=== PATIENT | male | born 1975 | race Caucasian/White ===

== ENCOUNTER → 2017-09-04 09:16 | Outpatient (CLI) | payer OTHER ==
--- NOTE | ~2017-09-04 | EC ---
PATIENT:GHASSAN AVINA 3RD DATE OF SERVICE: 09/04/17 SEX: M MEDICAL RECORD: [id number] DATE OF : 73 LOCATION:D.[facility] AGE OF PATIENT: 42 ADMISSION DATE: 09/04/17 REFERRING PHYSICIAN: INTERPRETING PHYSICIAN: DENNIS ESTRADA MD ECHOCARDIOGRAM REPORT ECHO CHARGES 4 ECHO COMPLETE Date: 09/04 CLINICAL DIAGNOSIS: HTN,ANGINA ECHOCARDIOGRAPHIC MEASUREMENTS (adult normal given) AC root (d.<3.7cm) 3.3 cm LV Septum d (<1.2 cm> 1.54 cm Valve Excursion 1.6 cm LV Septum (systole) 1.8 cm Left Atria (s.<4.0cm> 4.1 cm LVPW d(<1.2cm) 1.4 cm RV (d.<2.3cm) 4.6 cm LVPW (sytole) 1.8 cm LV diastole(<5.6CM) 4.9 cm MV E-F(>70mm/sec) cm LV systole 2.9 cm LVOT Diameter 1.9 cm MV exc.(>10mm) 1.6 cm Est.ejection fraction (50-75%) % DOPPLER: LVIT cm/sec A 61.0 cm/sec E 89.0 cm/sec LA cm/sec RVSP 39 mmHg LVOT 98 cm/sec AOP1/2T m/s Asc. Ao 127 cm/sec RVOT 101 cm/sec RA cm/sec PA 116 cm/sec AV Gradient Peak 6.42 mmHg AV Mean 3.39 mmHg AV Area 2.3 cm MV Gradient Peak 4.82 mmHg MV Mean 1.25 mmHg MV Area cm COMMENTS: Event Services Manager: 2 FRANCISCO JAVIER CHEEMA Wind Tunnel Technician: 4 Dr. Estrada TAPE# PACS Pericardial Effusion N DATE OF SERVICE: PROCEDURE: Transthoracic echocardiogram. FINDINGS: 1. Left ventricle has jefz-nh-tajnkevl left ventricular hypertrophy. Inflow characteristics; however, preserved and normal, the ejection fraction 65%. 2. The left atrium is mildly dilated. 3. The aortic valve is normal. 4. The mitral valve is normal. ECHOCARDIOGRAM REPORT [id number] GHASSAN AVINA 3RD 5. The tricuspid valve has mild tricuspid regurgitation. RVSP is mildly increased at 35-40 mmHg. 6. The pericardium is normal. 7. The right ventricle is moderately dilated. 8. The right atrium is mildly dilated. 9. The pulmonic valve is normal. 10. The interatrial septum is not well visualized. 11. The IVC is shown to be normal size and collapses with inspiration. CONCLUSIONS: The patient has evidence of mild left ventricular hypertrophy, otherwise normal echocardiogram. TRANSINT:[id number] Voice Confirmation ID: [id number] DOCUMENT ID: [id number] DENNIS ESTRADA MD at 1342 CC: [id number] DICTATION DATE: 09/04/17 1122 KNOT TYING OPERATOR: 09/04/17 1229 DEP CLI 09/04/17 [facility] [address] [place] [address]
== END | disposition home or self-care (01) ==
LOC: D.ECHO 09:16
DX: I20.9 Angina pectoris, unspecified (principal); I70.213 Atherosclerosis of native arteries of extremities with intermittent claudication, bilateral legs

== ENCOUNTER → 2017-10-09 17:03 | Outpatient (CLI) | payer OTHER ==
[~2017-10-09 17:03] MED LIST: BAYER CHEWABLE81 MG PO; GLUCOPHAGE1000 MG PO; LISINOPRIL10 MG PO; PLAVIX75 MG PO
[2017-10-09 17:35] LABS: ALBUMIN 3.8 g/dL (3.4-5.0); BILIRUBIN - DIRECT 0.06 mg/dL (0.00-0.30); BILIRUBIN - INDIRECT 0.14 mg/dL (0.00-1.00); BILIRUBIN - TOTAL 0.2 mg/dL (0.2-1.3); CHOL - HDL RATIO 6.5 ratio (2.3-4.9); LDL-HDL RATIO 3.2 ratio (1.5-3.5); PROTEIN - SERUM 7.9 g/dL (6.4-8.2)
[2017-11-13 07:24] VITALS: BMI 34.0
== END | disposition home or self-care (01) ==
LOC: D.LABREF 17:03
PROVIDERS: Internal Medicine Cardiovascular Disease
DX: E78.5 Hyperlipidemia, unspecified (principal); I10 Essential (primary) hypertension

== ENCOUNTER 2017-11-13 06:53 | Outpatient (CLI) | payer OTHER ==
[~2017-11-13] VITALS: Ht 175.3 cm; Wt 104.5 kg
--- NOTE | ~2017-11-13 | HEMODYNAMI ---
PATIENT:GHASSAN AVINA 3RD MEDICAL RECORD: [id number] : 73 LOCATION:[facility] ADMISSION DATE: 11/13/17 Generatedon:11/13/201710:27 Patient name: GHASSAN AVINA Patient #: [id number] SSN: : Date of study: 11/13/2017 Page: Of Hemodynamic Procedure Report Patient Data Patient Demographics Procedure consent was obtained First Name: GHASSAN Gender: Male Last Name: FABRICE : 1975 Middle Initial: 3RD Age: 42 year(s) Patient #: [id number] Race: Unknown Additional ID: [id number] Contact details Address: [address] [place] [address] cutoff State: [place] City: [facility] Zip code: [address] Past Medical History Allergies: No known allergies Admission Admission Data Admission Date: 11/13/2017 Admission Time: 6:53 Lab Results Lab Result Date: 11/13/2017 Lab Result Time: 0:00 Biochemistry Name Units Result Min Max BUN mg/dl 25 --(----)-* 7 18 Creatinine mg/dl 0.9 --(-*--)-- 0.6 1.3 CBC Name Units Result Min Max Hemoglobin g/dl 15.8 --(--*-)-- 13.5 17.5 Procedure Procedure Types Cath Procedure Diagnostic Procedure [facility] w/Coronaries Sedation Charges Moderate Sedation up to 15 minutes PCI Procedure Coronary Stent Coronary Stent Initial Procedure Description Procedure Date Procedure Date: 11/13/2017 Procedure Start Time: 9:57 Procedure End Time: 10:23 Procedure Staff Name Function Kunal Medel MD Performing Physician Orestes Brown RT Monitor La Winter RT Scrub Ruddy Rodarte RN Nurse Procedure Data Cath Procedure Fluoroscopy Diagnostic fluoroscopy Total fluoroscopy Time: 8.9 time: 8.9 min min Diagnostic fluoroscopy Total fluoroscopy dose: dose: 1615 mGy 1615 mGy Contrast Material Contrast Material Type Amount (ml) Isovue 300 90 Entry Location Entry Primary Successful Side Size Upsize Upsize Entry Closure Alva ccessful Closure Location (Fr) 1 (Fr) 2 (Fr) Remarks Device Remarks Radial Right 6 Fr Mechanical artery Short Compression Estimated blood loss: 10 ml Diagnostic catheters Device Type Used For End Catheter Placement DIAGNOSTIC Mansoor 110cm Procedure 5Fr catheter ([id number]) Procedure Complications No complications Procedure Medications Medication Administration Route Dosage 0.9% NaCl I.V. 100 ml/hr Oxygen etCO2 Nasal cannula 2 l/min Heparin Flush Bag added to field 2 bags (1000units/500ml NS) Lidocaine 2% added to field 20 Radial Cocktail added to field 1 syringe (Verapomil 2mg/Nitro 400mcg/Heparin 1500units) Versed I.V. 2 mg Fentanyl I.V. 50 mcg Radial Cocktail I.A. 1 syringe (Verapomil 2mg/Nitro 400mcg/Heparin 1500units) Angiomax (bolus) I.V. 16 ml Angiomax Drip I.V. drip 37 ml/hr (250mg/50ml NS) (Standard) Angiomax Drip wasted 37 ml/hr (250mg/50ml NS) (Standard) Plavix P.O. 300 mg Hemodynamics Rest HGB: 15.8 (g/dl) Heart Rate: 51 (bpm) Pressure Samples Time Site Value (mmHg) Purpose Heart Use Rate(bpm) 10:01 LV 108/-1,15 EDP 53 Gradients Valve Time Site Site Mean SEP/DFP Peak To Heart Use 1 2 (mmHg) (sec/min) Peak Rate (mmHg) (bpm) Aortic 10:02 LV AO 61 Snapshots Pre Cath Intra NCS Post Cath Vital Signs Time Heart Resp SPO2 etCO2 NIBP Rhythm Pain Sedation Rate (ipm) (%) (mmHg) (mmHg) Status Level (bpm) 9:39:46 46 20 94 0 120/59(87) NSR 0 (11) 10(A) , No pain 9:44:26 48 18 95 30.1 115/58(91) NSR 0 (11) 10(A) , No pain 9:49:09 53 16 97 36.1 108/58(76) NSR 0 (11) 10(A) , No pain 9:53:56 51 15 97 36.8 101/53(79) NSR 0 (11) 10(A) , No pain 9:58:39 50 18 97 29.3 99/52(77) NSR 0 (11) 10(A) , No pain 10:03:21 54 16 94 33.1 100/43(82) NSR 0 (11) 10(A) , No pain 10:08:08 59 15 96 36.1 104/39(70) NSR 0 (11) 10(A) , No pain 10:12:49 55 15 95 35.3 99/52(78) NSR 0 (11) 10(A) , No pain 10:17:25 54 17 97 34.6 110/57(80) NSR 0 (11) 10(A) , No pain 10:22:08 58 17 98 34.6 104/56(72) NSR 0 (11) 10(A) , No pain Medications Time Medication Route Dose Verified Delivered Reason Not es Effectiveness by by 9:43:45 0.9% NaCl I.V. 100 Ruddy Ruddy Per physician ml/hr Cayden Rodarte RN RN 9:43:53 Oxygen etCO2 2 l/min Ruddy Ruddy Per physician Nasal Cayden Rodarte cannula RN RN 9:44:04 Heparin Flush added 2 bags Ruddy Ruddy used for Bag to Lorigan Lorigan procedure (1000units/500ml field RN RN NS) 9:44:15 Lidocaine 2% added 20ml Ruddy Ruddy for local to vial Lorigan Lorigan anesthetic [facility] RN RN 9:44:27 Radial Cocktail added 1 Ruddy Ruddy used for (Verapomil to syringe Lorigan Lorigan procedure 2mg/Nitro field RN RN 400mcg/Heparin 1500units) 9:52:01 Versed I.V. 2 mg Ruddy Ruddy for sedation Cayden Rodarte RN RN 9:52:14 Fentanyl I.V. 50 mcg Ruddy Ruddy for sedation Cayden Rodarte RN RN 10:00:05 Radial Cocktail I.A. 1 Ruddy Kunal for (Verapomil syringe Cayden Norred MD vasodilation 2mg/Nitro RN 400mcg/Heparin 1500units) 10:14:15 Angiomax (bolus) I.V. 16 ml Ruddy Ruddy for Lorigan Lorigan anticoagulation RN RN 10:15:13 Angiomax Drip I.V. 37 Ruddy Ruddy for (250mg/50ml NS) drip ml/hr Lorigan Lorigan anticoagulation (Standard) RN RN 10:22:24 Angiomax Drip wasted 37 Ruddy Francisothy to sharp's (250mg/50ml NS) ml/hr Cayden Rodarte (Standard) RN RN 10:22:42 Plavix P.O. 300 mg Ruddy Fox for Cayden Rodarte antiplatelet RN RN therapy Procedure Log Time Note 9:02:01 Signed procedure consent form obtained from patient. 9:02:02 Time tracking: Regular hours (M-F 7:00 - 5:00) 9:02:05 Plan of Care:Hemodynamics will remain stable., Cardiac rhythm will remain stable., Comfort level will be maintained., Respiratory function will remain adequate., Patient/ family verbilizes understanding of procedure., Procedure tolerated without complication., Recovers from procedure without complications.. 9:02:16 H&P Date Dictated: 10/24/2017 Within 30 days and on chart., H&P Addendum completed by physician on day of procedure. (MUST COMPLETE FOR ALL OUTPATIENTS). 9:03:41 Lab Result : BUN 25 mg/dl 9:03:41 Lab Result : Creatinine 0.9 mg/dl 9:03:41 Lab Result : Hemoglobin 15.8 g/dl 9:26:26 Ruddy Rodarte RN sent for patient. Start room use. 9:30:59 Patient received from Pre/Post Procedure Room to CCL 1 Alert and oriented. Tansferred to table in Supine position. 9:31:00 Warm blankets applied, and raheem hugger turned on for patient comfort. 9:31:00 Correct patient and procedure confirmed by team. 9:31:01 ECG and BP/O2 sat monitors applied to patient. 9:38:32 Vital chart was started 9:43:45 0.9% NaCl 100 ml/hr I.V. was administered by Ruddy Rodarte RN; Per physician; 9:43:53 Oxygen 2 l/min etCO2 Nasal cannula was administered by Ruddy Rodarte RN; Per physician; 9:44:04 Heparin Flush Bag (1000units/500ml NS) 2 bags added to field was administered by Ruddy Rodarte RN; used for procedure; 9:44:15 Lidocaine 2% 20ml vial added to field was administered by Ruddy Rodarte RN; for local anesthetic; 9:44:27 Radial Cocktail (Verapomil 2mg/Nitro 400mcg/Heparin 1500units) 1 syringe added to field was administered by Ruddy Rodarte RN; used for procedure; 9:46:38 Baseline sample Acquired. 9:46:41 Rhythm: sinus rhythm 9:46:42 Full Disclosure recording started 9:46:43 Pre-procedure instructions explained to patient. 9:46:43 Pre-op teaching completed and patient verbalized understanding. 9:46:44 Family in waiting room. 9:46:46 Patient NPO since Midnight. 9:46:55 Patient allergic to No known allergies 9:46:57 Is the patient allergic to Iodine/contrast media? No. 9:46:58 Is patient on blood thinner?Yes 9:47:01 ACC The patient was administered the following blood thiners within the last 24 hours: ACCPlavix 9:47:02 Patient diabetic? Yes. 9:47:03 If diabetic: On Metformin? Yes 9:47:07 If on Metformin: Last Dose? 11/11/2017 9:47:13 Previous problem with sedation/anesthesia? No ? 9:47:14 Snore? Yes 9:47:15 Sleep apnea? No 9:47:16 Deviated septum? No 9:47:17 Opens mouth fully? Yes 9:47:18 Sticks out tongue? Yes 9:47:21 Airway obstruction? No ? 9:47:23 Dentures? No ? 9:47:27 Modified Ayush's test Ulnar < 7 seconds 9:47:28 Patient pain scale 0/10 ?. 9:47:40 IV patent on arrival in left wrist with 0.9% NaCl at KVO. 9:47:41 Lab results completed and on chart. 9:47:44 Right Radial & Right Groin area was prepped with chlora-prep and draped in sterile fashion 9:47:45 Alarms reviewed by R. N. 9:47:46 Sharps counted by scrub and verified by R.N. 9:47:48 Use device set Radial Dx or PCI 9:47:49 ACIST Syringe (49493) opened to sterile field. 9:47:50 Medline Cath Pack ([id number]) opened to sterile field. 9:47:50 Bag Decanter (2002) opened to sterile field. 9:47:51 ACIST Hand Control (62306) opened to sterile field. 9:47:52 ACIST Manifold (10430) opened to sterile field. 9:47:52 Tegaderm 4 x 4 (1626W) opened to sterile field. 9:47:53 MBrace Wrist Support ([id number]) opened to sterile field. 9:47:54 SHEATH 6Fr Prelude Radial ([id number]) opened to sterile field. 9:47:55 DIAGNOSTIC WIRE .035 260cm J wire (924728) opened to sterile field. 9:49:05 Physician paged 9:51:07 Zero performed for pressure channel P1 9:51:33 Physician arrived 9:51:33 --------ALL STOP TIME OUT------ 9:51:34 Final Timeout: patient, procedure, and site verified with staff and physician. All members of the team are in agreement. 9:51:36 Right Radial & Right Groin site verified by team. 9:51:39 Physical assessment completed. ASA score P 2 - A patient with mild systemic disease as per Kunal Medel MD. 9:51:42 Sedation plan: IV Moderate Sedation Medication:Versed, Fentanyl 9:52:01 Versed 2 mg I.V. was administered by Ruddy Rodarte RN; for sedation; 9:52:14 Fentanyl 50 mcg I.V. was administered by Ruddy Rodarte RN; for sedation; 9:57:25 Procedure started. 9:57:29 Local anesthetic to right radial artery with Lidocaine 2% by Kunal Medel MD.INITIAL ACCESS ONLY 9:57:39 A 6 Fr Short sheath was inserted into the Right Radial artery 9:59:48 A DIAGNOSTIC Mansoor 110cm 5Fr catheter (567507) was advanced over the wire and used for Procedure. 9:59:51 Zero performed for pressure channel P1 9:59:58 Zero performed for pressure channel P1 10:00:05 Radial Cocktail (Verapomil 2mg/Nitro 400mcg/Heparin 1500units) 1 syringe I.A. was administered by Kunal Medel MD; for vasodilation; 10:00:07 Zero performed for pressure channel P1 10:00:42 Zero performed for pressure channel P1 10:00:47 Zero performed for pressure channel P1 10:01:29 LV hemodynamics recorded. 10:01:30 LV gram done using BAILEY 10:01:34 Injector settings: Ml/sec: 12, Volume: 8, 10:01:57 EF : 60 % 10:02:35 RCA angiography performed. 10:05:15 LCA angiography performed. 10:06:08 Catheter removed. 10:06:24 INFLATOR Merit Juani (UZ5248) opened to sterile field. 10:06:25 BMW 190cm Hickory 2 J wire ([id number]) opened to sterile field. 10:06:31 COPILOT Valve Control (0775300) opened to sterile field. 10:09:04 GUIDE 6FR EBU 3.0 SH catheter ([id number]) opened to sterile field. 10:09:13 6 Fr ebu 3.0 sh guide catheter was inserted over the wire 10:13:07 BMW wire advanced. 10:13:50 Wire advanced across lesion. 10:14:15 Angiomax (bolus) 16 ml I.V. was administered by Ruddy Rodarte RN; for anticoagulation; 10:15:13 Angiomax Drip (250mg/50ml NS) (Standard) 37 ml/hr I.V. drip was administered by Ruddy Rodarte RN; for anticoagulation; 10:16:58 Place stent Inflation Number: 1 A DARREN RX 3.5 x 26 stent ([id number]) was prepped and advanced across the Mid LAD. The stent was deployed at 12 KEISHA for 0:10 (min:sec). 10:17:08 Stent catheter was removed intact over wire. 10:18:28 Wire removed. 10:18:29 Guide catheter removed. 10:19:03 TR BAND Large ([id number]) opened to sterile field. 10:19:54 Sheath removed intact; hemostasis achieved with Mechanical Compression to the Right Radial artery. 10:19:56 Procedure ended.(Physican Out) 10:20:30 Fluoroscopy time 08.90 minutes. 10:20:38 Fluoroscopy dose: 1615 mGy 10:20:38 Flurop Dose total: 1615 10:20:43 Contrast amount:Isovue 300 90ml. 10:20:44 Sharps counted by scrub and verified by R.N. 10:20:46 TR band inflated with 12cc of air. 10:20:48 Insertion/operative site no bleeding no hematoma. 10:20:49 Post Procedure Pulses reassessed and unchanged 10:21:01 Post-procedure physical assessment completed. ASA score P 2 - A patient with mild systemic disease as per Kunal Medel MD. 10:21:10 Post procedure rhythm: unchanged. 10:21:15 Estimated blood loss: 10 ml 10:21:17 Post procedure instruction explained to patient.Patient verbalizes understanding. 10:21:17 Patient needs reinforcement of post procedure teaching. 10:21:31 Procedure type changed to Cath procedure, Diagnostic procedure, LHC, LHC w/Coronaries, Sedation Charges, Moderate Sedation up to 15 minutes, PCI procedure, Coronary Stent, Coronary Stent Initial 10:22:24 Angiomax Drip (250mg/50ml NS) (Standard) 37 ml/hr wasted was administered by Ruddy Rodarte RN; to sharp's; 10:22:42 Plavix 300 mg P.O. was administered by Ruddy Rodarte RN; for antiplatelet therapy; 10:23:41 Procedure and supply charges have been captured, reviewed, submitted and are correct. 10:23:47 Procedure Complication : No complications 10:23:49 Vital chart was stopped 10:23:50 See physician's report for complete and final results. 10:23:51 Report given to Pre/Post Procedure Room. 10:23:53 Patient transfered to Pre/Post Procedure Room with Stretcher. 10:23:55 Procedure ended. 10:23:55 Full Disclosure recording stopped 10:23:59 End room use (Document Last) Intervention Summary Intervention Notes Time ActionType Lesion and Equipment Used Action# Pressure Duration Attributes 10:16:58 Place stent Mid LAD DARREN RX 3.5 x 1 12 00:10 26 stent ([id number]) Device Usage Item Name Manufacture Quantity Catalog Number Hospital Part Current Minimal Lot# / Charge Number Stock Stock Serial# Code ACIST Syringe Acist 1 83573 634179 502382 101187 20 (33378) Medical Systems Inc Medline Cath Cardinal 1 [id number] 996434 17809 263094 5 Pack Health ([id number]) Bag Decanter Microtek 1 312371 73393 595331 5 () Medical Inc. ACIST Hand Acist 1 23700 026156 521155 451143 5 Control (48855) [employer] Systems Inc ACIST Manifold Acist 1 09662 235671 248820 074283 5 (02996) Medical Systems Inc Tegaderm 4 x 4 3M 1 1626W 370916 476414 492552 5 (1626W) MBrace Wrist Advanced 1 140-0250-00 634880 10154 197715 5 Support Vascular ([id number]) Dynamics SHEATH 6Fr Merit 1 [id number] 761971 252621 944374 5 Prelude Radial Medical ([id number]) DIAGNOSTIC WIRE St Stu 1 765742 407929 680526 684271 30 .035 260cm J wire (068348) DIAGNOSTIC Terumo 1 40-4563 968351 062629 998914 5 Mansoor 110cm 5Fr catheter (517972) INFLATOR Merit Merit 1 [id number] 589847 919010 897726 15 BasixCompak Medical (TH6854) BMW 190cm Brannon 1 [id number] 945898 15416 211364 5 Hickory 2 J Vascular wire ([id number]) COPILOT Valve Brannon 1 4486097 093593 424373 179331 5 Control Vascular (0123578) GUIDE 6FR EBU Medtronic 1 [id number] 928019 75125 672671 0 3.0 SH catheter ([id number]) DARREN RX 3.5 x Medtronic 1 [id number] 696278 6438119 802748 5 [id number] 26 stent ([id number]) TR BAND Large Terumo 1 [id number] 489924 087635 961145 40 ([id number]) Signature Audit [place] Stage Time Signature Unsigned Intra-Procedure 11/13/2017 Orestes Brown 10:27:26 AM RT(R) Signatures Monitor : Orestes Brown RT Signature : Date : Time : [facility] [address] [place] [address]
--- NOTE | ~2017-11-13 | OP ---
PATIENT NAME: GHASSAN AVINA MEDICAL RECORD: [id number] :73 LOCATION:D[facility] ADMISSION DATE: SURGEON: DENNIS ESTRADA MD DATE OF OPERATION: 11/13/2017 PROCEDURE: Left heart cath, LV gram, coronary angiogram, and direct stenting with a drug-eluting stent to the LAD. DESCRIPTION OF PROCEDURE: The patient was brought to the cardiac catheterization lab in stable condition. Both groins and the right wrist were sterilely prepped and draped. The patient had a 6-Turkmen sheath placed in the right radial artery using modified Seldinger technique. The patient then had diagnostic catheterization utilized to intubate the left coronary artery, the right coronary artery, and the left ventricular cavity respectively. The patient then had the diagnostic catheter exchanged for an interventional guiding catheter. We then were able to directly stent an 85% stenosis into the mid LAD. The patient had an 85% mid stenosis in the LAD. The patient then had a 0.014 inch wire utilized to get distal wire positioned into the LAD. The patient then had a 3.5 x 26 drug-eluting stent taken to nominal pressures and to the mid LAD reducing the 85% stenosis to 0% residual stenosis with good step down distally. No dissection seen or distal embolization noticed. FINDINGS: 1. The RCA is a dominant vessel by distribution with a mid area of 40% stenosis. 2. The left main has mild plaquing. 3. The LAD is a large vessel with 80% to 90% mid stenosis at the takeoff of the mid diagonal. 4. The circumflex is a nondominant vessel and normal. HEMODYNAMICS: Left ventricular ejection fraction is 60%. End-diastolic pressure was normal. No significant mitral regurgitation. No gradient across the aortic valve. IMPRESSION: Severe single-vessel coronary artery disease with preserved LV systolic function with mild remaining diffuse disease. RECOMMENDATIONS: Usual post-PCI care. Continue dual antiplatelet therapy for 1 year and aggressive secondary risk factor modification. TRANSINT:[id number] Voice Confirmation ID: [id number] DOCUMENT ID: [id number] DENNIS ESTRADA MD at 1144 CC: [id number] DICTATION DATE: 11/13/17 1023 LEAD MAN OVER ALL DIES IN PATTERN SHOP: 11/13/17 1052 DEP CLI 11/13/17 [place] [address]
[2017-11-13] MEDS ORDERED: GLUCOPHAGE1000 MG PO (07:11)
[2017-11-13] MEDS ORDERED: LISINOPRIL10 MG PO (07:11)
[2017-11-13 07:24] VITALS: BP 113/68; Ht 175.3 cm; Wt 104.5 kg
[2017-11-13 08:37] LABS: BASOPHILS 0.3 % (0-2); EOSINOPHILS 2.7 % (0-7); HEMATOCRIT 45.1 % (42.0-54.0); HEMOGLOBIN 15.8 g/dL (13.5-17.5); IMMATURE GRANULOCYTES 0.2 % (0-5); MCH 30.9 pg (26.0-34.0); MCV 88.3 fL (80.0-100.0); MEAN PLATELET VOLUME 11.4 fL (7.4-10.4); MONOCYTES 7.3 % (2-11); NEUTROPHILS 57.5 % (40-80); PLATELET COUNT 205 10x3/uL (130-400); RBC 5.11 10x6/uL (4.20-6.10); RDW 13.1 % (11.5-14.5); WBC 9.6 10x3/uL (4.8-10.8)
[2017-11-13 08:45] LABS: CALC OSMOLALITY 276 mosm/kg (275-300); CALCIUM 8.8 mg/dL (8.5-10.1); CARBON DIOXIDE 27.6 mmol/L (21.0-32.0); CREATININE - SERUM 0.9 mg/dL (0.6-1.3); GLUCOSE 118 mg/dL (74-106); POTASSIUM - SERUM 3.8 mmol/L (3.5-5.1); SODIUM 136 mmol/L (136-145); UREA NITROGEN 25 mg/dL (7-18); eGFR NON AFRICAN AMERICAN > 90 mL/min (90-120)
[2017-11-13 08:50] LABS: CHLORIDE - SERUM 104 mmol/L (98-107)
[2017-11-13] MEDS ORDERED: BAYER CHEWABLE81 MG PO (10:53)
[2017-11-13] MEDS ORDERED: PLAVIX75 MG PO (10:53)
== END 2017-11-13 14:35 | disposition home or self-care (01) ==
LOC: D.CATH 06:53
PROVIDERS: Internal Medicine Cardiovascular Disease
DX: I25.10 Atherosclerotic heart disease of native coronary artery without angina pectoris (principal); E78.5 Hyperlipidemia, unspecified; I10 Essential (primary) hypertension

== ENCOUNTER 2018-02-03 21:37 | Emergency (ER) | payer OTHER ==
[~2018-02-03] VITALS: Ht 175.3 cm; Wt 95.3 kg
[2018-02-03 21:41] VITALS: Ht 175.3 cm; Wt 95.3 kg
[2018-02-03] MEDS ORDERED: MAVYRET (21:42)
== END 2018-02-03 23:45 | disposition left against medical advice (07) ==
LOC: D.ER 21:37
DX: R45.1 Restlessness and agitation (principal); B19.20 Unspecified viral hepatitis C without hepatic coma; E11.9 Type 2 diabetes mellitus without complications; F17.200 Nicotine dependence, unspecified, uncomplicated